=== PATIENT | female | born 1935 | race Caucasian/White ===

== ENCOUNTER → 2019-06-27 | Outpatient (CLI) | payer MEDICARE, OTHER, MEDICAID ==
--- NOTE | 2019-07-02 09:00 | PCVCIMAG ---
APPROVED REPORT Study performed: 06/27/2019 08:41:06 EXAM: Comprehensive 2D, Doppler, and color-flow Echocardiogram Patient Location: Echo lab Status: routine BSA: 1.56 HR: 54 bpmBP: 160/82 mmHg Other Information Study Quality: Adequate Risk Factors: Cardiac Risk Factors: HTN Indications Chest Pain assess PAP 2D Dimensions IVSd: 18.12 (7-11mm) LVDd: 41.05 mm PWd: 14.05 (7-11mm)Ascending Ao: 41.48 (22-36mm) LVDs: 30.24 (25-40mm) Left Atrium: 46.13 (27-40mm) Aortic Root: 37.37 mm LV Single Plane 4CH: 61.23 % LV Single Plane 2CH: 51.62 % Biplane EF: 58.0 % Volumes Left Atrial Volume (Systole) Single Plane 4CH: 96.34 mLSingle Plane 2CH: 94.25 mL LA ESV Index: 63.00 mL/m2 Aortic Valve AoV Peak Jose.: 1.94 m/s AO Peak Gr.: 15.04 mmHgLVOT Max P.87 mmHg LVOT Max V: 1.10 m/s AI Vmax: 4.76 m/s AI [place]: 2.61 m/s2 AI PHT: 529.27 ms Mitral Valve E/A Ratio: 0.7 MV Decel. Time: 301.33 ms MV E Max Jose.: 0.85 m/s MV A Jose.: 1.15 m/s IVRT: 107.27 ms Pulmonary Valve PV Peak Jose.: 1.29 m/sPV Peak Gr.: 6.68 mmHg Pulmonary Vein P Vein S: 0.58 m/sP Vein A: 0.31 m/s P Vein D: 0.73 m/sP Vein A Dur.: 134.9 msec P Vein S/D Ratio: 0.79 Tricuspid Valve TR Peak Jose.: 2.46 m/s TR Peak Gr.: 24.26 mmHg TV Vmax: 0.40 m/s Left Ventricle The left ventricle is normal size. There is normal LV segmental wall motion. Moderate concentric left ventricular hypertrophy. Left ventricular systolic function is normal. The left ventricular ejection fraction is within the normal range. LVEF is 60-65%. Grade I - abnormal relaxation pattern. Right Ventricle The right ventricle is normal size. The right ventricular systolic function is normal. Atria Left atrium is severely dilated. The right atrium size is normal. Aortic Valve Mild aortic valve sclerosis. Mild aortic regurgitation. There is no aortic valvular stenosis. Mitral Valve The mitral valve is normal in structure. Mild to moderate mitral regurgitation. No evidence of mitral valve stenosis. Tricuspid Valve The tricuspid valve is normal in structure. Mild tricuspid regurgitation with PAP of 31 mmHg. Pulmonic Valve The pulmonary valve is normal in structure. There is no pulmonic valvular regurgitation. Great Vessels The aortic root is normal in size. 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 IVC is normal in size and collapses >50% with inspiration. Pericardium There is no pericardial effusion. There is no pleural effusion. <Conclusion> The left ventricle is normal size. LVEF is 60-65%. Left atrium is severely dilated. Mild aortic valve sclerosis. Mild aortic regurgitation. The mitral valve is normal in structure. Mild to moderate mitral regurgitation. The tricuspid valve is normal in structure. Mild tricuspid regurgitation with PAP of 31 mmHg. There is no pericardial effusion. There is no pleural effusion. 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
== END | disposition home or self-care (01) ==
LOC: PCVCIMAG 11:26
PROVIDERS: ATTEND Internal Medicine
DX: I08.3 Combined rheumatic disorders of mitral, aortic and tricuspid valves (principal); Z88.2 Allergy status to sulfonamides
CPT/HCPCS: 93306

== ENCOUNTER → 2019-09-03 | Outpatient (CLI) | payer MEDICARE, OTHER, MEDICAID | END | disposition home or self-care (01) | LOC: PCVCCLINIC 14:00 | PROVIDERS: ATTEND Internal Medicine | DX: I10 Essential (primary) hypertension (principal); E78.5 Hyperlipidemia, unspecified; K21.9 Gastro-esophageal reflux disease without esophagitis; J45.50 Severe persistent asthma, uncomplicated; J44.9 Chronic obstructive pulmonary disease, unspecified; Z82.49 Family history of ischemic heart disease and other diseases of the circulatory system; Z88.2 Allergy status to sulfonamides; Z79.899 Other long term (current) drug therapy; Z88.1 Allergy status to other antibiotic agents; Z82.3 Family history of stroke | CPT/HCPCS: G0463 ==